=== PATIENT | male | born 1940 | race Caucasian/White ===

== ENCOUNTER 2017-10-08 08:57 | Emergency (ER) | payer MEDICARE, OTHER ==
[~2017-10-08] VITALS: Ht 170.2 cm; Wt 90.3 kg
[~2017-10-08 08:57] MED LIST: CLPD75T PO; HYDR25TA4 PO; KCL10CCR PO; LISI10TA2 PO; LISI5TAB PO; METO100T2 PO; POTA10CA43 PO
[2017-10-08] MEDS ORDERED: fentaNYL INJECTION 100 MCG/2 ML AMP INJ ONE (08:59)
[2017-10-08] MEDS ORDERED: EPINEPHrine INJECTION 1 MG/ML AMP INJ ONE (08:59)
[2017-10-08] MEDS ORDERED: DOPamine DRIP 400,000 MCG/250 ML BAG IV ONE (08:59)
[2017-10-08] MEDS ORDERED: CALCIUM CHLORIDE 1 GM/10 ML (IMS) SYR INJ ONE (08:59)
[2017-10-08] MEDS ORDERED: SUCCINYLCHOLINE INJ 100 MG/5 ML SYR INJ ONE (08:59)
[2017-10-08] MEDS ORDERED: ATROPINE INJECTION 1 MG/10 ML SYR (ABBOTT) INJ ONE (08:59)
[2017-10-08] MEDS ORDERED: SODIUM BICARB 8.4% 50 MEQ/50 ML VIAL IV ONE (08:59)
[2017-10-08] MEDS ORDERED: ETOMIDATE IV SOLN 20 MG/10 ML VIAL IV ONE (08:59)
[2017-10-08] MEDS ORDERED: MIDAZOLAM 5 MG/5 ML (VERSED) VIAL INJ ONE (08:59)
--- OUTSIDE RECORDS SUMMARY | 2017-10-08 09:03 | XMS REPORT | Continuity of Care Document ---
Author Author [facility] Organization [facility] Address Unknown Phone Unavailable Allergies There is no data. Medications There is no data. Problems There is no data. Procedures There is no data. Results There is no data. Encounters ACCT No. Visit Date/Time Discharge Status Pt. Type Provider Facility Loc./Unit Complaint [id number] 02/19/2014 07:02:00 02/19/2014 18:40:00 DIS Inpatient [id number] 07/31/2013 07:59:00 08/01/2013 10:45:00 DIS Outpatient [id number] 07/03/2013 11:31:00 07/04/2013 11:45:00 DIS Outpatient [id number] 06/12/2013 09:27:00 06/12/2013 21:00:00 DIS Outpatient
[2017-10-08] MEDS ORDERED: ASPIRIN 81 MG CHEW (CHILDREN'S ASA) ONE (09:08)
[2017-10-08] MEDS ORDERED: ASPIRIN 81 MG CHEW (CHILDREN'S ASA) PO ONE (09:15)
[2017-10-08 09:20] LABS: BASOPHILS % (AUTO) 0 % (0-10); EOSINOPHILS % (AUTO) 0 % (0-10); HEMATOCRIT 40 % (40-54); HEMOGLOBIN 13.1 G/DL (13.3-17.7); LYMPHOCYTES # (AUTO) 2.6 X 10^3 (1.0-4.0); LYMPHOCYTES % (AUTO) 13 % (12-44); MEAN CORPUSCULAR HEMOGLOBIN 29 PG (25-34); MEAN CORPUSCULAR HGB CONC 33 G/DL (32-36); MEAN CORPUSCULAR VOLUME 89 FL (80-99); MEAN PLATELET VOLUME 10.2 FL (7.4-10.4); MONOCYTES # (AUTO) 0.9 X 10^3 (0.0-1.0); MONOCYTES % (AUTO) 4 % (0-12); NEUTROPHILS # (AUTO) 16.1 X 10^3 (1.8-7.8); NEUTROPHILS % (AUTO) 82 % (42-75); PLATELET COUNT 400 10^3/uL (130-400); RED BLOOD COUNT 4.51 10^6/uL (4.35-5.85); RED CELL DISTRIBUTION WIDTH 15.5 % (10.0-14.5); WHITE BLOOD COUNT 19.6 10^3/uL (4.3-11.0)
--- NOTE | 2017-10-08 09:32 | Diagnostic Imaging Report ---
Indication: Shortness of breath and weakness PA chest obtained at 925 hours a.m. and compared with 06/12/2013. There is prominent cardiomegaly. There is mild central vascular prominence. There is no wisam edema or pneumothorax or pleural fluid. There is early alveolar infiltrate in the right lung base medially, compatible with pneumonia. IMPRESSION: Prominent cardiomegaly. Early infiltrate right medial base which may represent pneumonia. No pneumothorax or pleural fluid. Dictated by: Dictated on workstation # [id number]
[2017-10-08 09:37] LABS: INR 1.2 (0.8-1.4); PROTHROMBIN TIME PATIENT 15.7 SEC (12.2-14.7)
[2017-10-08 09:40] LABS: ALBUMIN 4.4 GM/DL (3.2-4.5); BILIRUBIN,TOTAL 0.4 MG/DL (0.1-1.0); CALCIUM 10.4 MG/DL (8.5-10.1); CREATININE SERUM 2.86 MG/DL (0.60-1.30); MAGNESIUM 2.7 MG/DL (1.8-2.4); POTASSIUM 5.5 MMOL/L (3.6-5.0)
--- NOTE | 2017-10-08 09:46 | ED Cardiac General ---
History of Present Illness General Chief Complaint: Cardiac/General Problems Stated Complaint: SOA,WEAK Nursing Triage Note: pt brought to ed via ems. pt's son states pt was c/o being lightheaded, nauseated, sob. son was trying to get pt in the car to bring to ed when pt began to have what the son described as seizure activity. ems was called at that time. Source: patient Exam Limitations: no limitations History of Present Illness Date Seen by Provider: October 08, 2017 Time Seen by Provider: 08:58 Initial Comments This 76-year-old gentleman arrives via EMS with complaints of weakness, dyspnea , generalized aching, and chest discomfort. The weakness started yesterday and the other symptoms developed this morning. He is alert and oriented. Vital signs are stable. EMS also reports that while his son was trying to get the patient to his car, he had tremoring activity. Is unclear if this was seizure- like activity. Patient denies active chest pain on arrival and he is afebrile. Allergies and Home Medications Allergies Coded Allergies: No Known Drug Allergies (Unverified , 06/12/13) Home Medications Clopidogrel Bisulfate 75 Mg Tab, 75 MG PO DAILY Prescribed by: MIRIAN CAREY on 08/01/13 1027 Hydrochlorothiazide 25 Mg Tablet, 25 MG PO DAILY, (Reported) Lisinopril 10 Mg Tablet, 10 MG PO DAILY, (Reported) Metoprolol Tartrate 100 Mg Tablet, 100 MG PO BID, (Reported) Potassium Chloride 10 Meq Tablet.sa, 10 MEQ PO DAILY, (Reported) Patient Home Medication List Home Medication List Reviewed: Yes Review of Systems Constitutional: see HPI, weakness EENTM: No Symptoms Reported Respiratory: See HPI Cardiovascular: See HPI Gastrointestinal: No Symptoms Reported Genitourinary: No Symptoms Reported Musculoskeletal: no symptoms reported Skin: no symptoms reported Psychiatric/Neurological: See HPI Endocrine: No Symptoms Reported Hematologic/Lymphatic: No Symptoms Reported Past Jolewie-Jbxxqj-Enmmth Hx Patient Social History Alcohol Use: Denies Use Recreational Drug Use: No Smoking Status: Former Smoker Type Used: Cigarettes Recent Foreign Travel: No Contact w/Someone Who Travel: No Recent Infectious Disease Expo: No Recent Hopitalizations: No Physical Abuse: No Sexual Abuse: No Seasonal Allergies Seasonal Allergies: No Past Medical History Surgeries: Yes Cardiac, Vascular Surgery (Peripheral vascular stenting) Respiratory: No Cardiac: Yes Peripheral Vascular Neurological: No Genitourinary: No Gastrointestinal: No Musculoskeletal: No Endocrine: No HEENT: Yes (bilateral cataract surgery ) Cataract Cancer: No Psychosocial: No Nursing Suicide Risk Score: 0 Integumentary: No Physical Exam Vital Signs Capillary Refill : Greater Than 3 Seconds General Appearance: No Apparent Distress, WD/WN HEENT: PERRL/EOMI, Normal ENT Inspection, Pharynx Normal Neck: Normal Inspection Respiratory: Lungs Clear, Normal Breath Sounds, No Accessory Muscle Use, No Respiratory Distress Cardiovascular: Regular Rate, Rhythm, No Edema, No Murmur, Other (peripheral pulses were weak but blood pressure was normal) Gastrointestinal: Normal Bowel Sounds, Non Tender, Soft Extremity: Non Tender, No Pedal Edema Neurologic/Psychiatric: Alert, Oriented x3, Normal Mood/Affect, 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 II-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 Norm as Tested, Motor Weakness (generalized) Skin: Warm/Dry, Other (skin was generally pale and subtly mottled with sluggish capillary refill) Focused Exam Lactate Level 10/08/17 09:06: Lactic Acid Level 12.75*H Lactic Acid Level Laboratory Tests Test 10/08/17 09:06 Lactic Acid Level 12.75 MMOL/L (0.50-2.00) *H Progress/Results/Core Measures Results/Orders Lab Results Laboratory Tests Test 10/08/17 09:06 Range/Units White Blood Count 19.6 H 4.3-11.0 10^3/uL Red Blood Count 4.51 4.35-5.85 10^6/uL Hemoglobin 13.1 L 13.3-17.7 G/DL Hematocrit 40 40-54 % Mean Corpuscular Volume 89 80-99 FL Mean Corpuscular Hemoglobin 29 25-34 PG Mean Corpuscular Hemoglobin Concent 33 32-36 G/DL Red Cell Distribution Width 15.5 H 10.0-14.5 % Platelet Count 400 130-400 10^3/uL Mean Platelet Volume 10.2 7.4-10.4 FL Neutrophils (%) (Auto) 82 H 42-75 % Lymphocytes (%) (Auto) 13 12-44 % Monocytes (%) (Auto) 4 0-12 % Eosinophils (%) (Auto) 0 0-10 % Basophils (%) (Auto) 0 0-10 % Neutrophils # (Auto) 16.1 H 1.8-7.8 X 10^3 Lymphocytes # (Auto) 2.6 1.0-4.0 X 10^3 Monocytes # (Auto) 0.9 0.0-1.0 X 10^3 Eosinophils # (Auto) 0.0 0.0-0.3 10^3/uL Basophils # (Auto) 0.0 0.0-0.1 10^3/uL Neutrophils % (Manual) 84 % Lymphocytes % (Manual) 10 % Monocytes % (Manual) 4 % Eosinophils % (Manual) 1 % Band Neutrophils 1 % Blood Morphology Comment NORMAL Prothrombin Time 15.7 H 12.2-14.7 SEC INR Comment 1.2 0.8-1.4 Activated Partial Thromboplast Time 27 24-35 SEC D-Dimer 1.21 H 0.00-0.49 UG/ML Sodium Level 133 L 135-145 MMOL/L Potassium Level 5.5 H 3.6-5.0 MMOL/L Chloride Level 97 L 98-107 MMOL/L Carbon Dioxide Level 12 L 21-32 MMOL/L Anion Gap 24 H 5-14 MMOL/L Blood Urea Nitrogen 55 H 7-18 MG/DL Creatinine 2.86 H 0.60-1.30 MG/DL Estimat Glomerular Filtration Rate 22 BUN/Creatinine Ratio 19 Glucose Level 369 H 70-105 MG/DL Lactic Acid Level 12.75 *H 0.50-2.00 MMOL/L Calcium Level 10.4 H 8.5-10.1 MG/DL Magnesium Level 2.7 H 1.8-2.4 MG/DL Total Bilirubin 0.4 0.1-1.0 MG/DL Aspartate Amino Transf (AST/SGOT) 92 H 5-34 U/L Alanine Aminotransferase (ALT/SGPT) 22 0-55 U/L Alkaline Phosphatase 72 40-136 U/L Total Creatine Kinase 1319 H 30-200 U/L Myoglobin 2625.8 H 10.0-92.0 NG/ML Troponin I 15.48 *H <0.30 NG/ML C-Reactive Protein High Sensitivity 2.11 H 0.00-0.50 MG/DL B-Type Natriuretic Peptide 2762.7 H <100.0 PG/ML Total Protein 8.0 6.4-8.2 GM/DL Albumin 4.4 3.2-4.5 GM/DL Micro Results Microbiology 10/08/17 Blood Culture - Final, Complete No growth 10/08/17 Influenza Types A,B Antigen (RACHEL) - Final, Complete My Orders Orders - BRITTNY DONATO MD Cbc With Automated Diff (10/08/17 09:09) Magnesium (10/08/17 09:09) Chest 1 View, Ap/Pa Only (10/08/17 09:09) Ekg Tracing (10/08/17 09:09) Cardiac Profile 1 (10/08/17 09:09) Comprehensive Metabolic Panel (10/08/17 09:09) Myoglobin Serum (10/08/17 09:09) Protime With Inr (10/08/17 09:09) Partial Thromboplastin Time (10/08/17 09:09) O2 (10/08/17 09:09) Monitor-Rhythm Ecg Trace Only (10/08/17 09:09) Aspirin Chewable Tablet (Baby Aspirin Ch (10/08/17 09:15) Saline Lock/Iv-Start (10/08/17 09:09) BNP (10/08/17 09:09) Fibrin Degradation Products (10/08/17 09:09) Creatine Kinase (10/08/17 09:09) Hs C Reactive Protein (10/08/17 09:09) Influenza A And B Antigens (10/08/17 09:09) Aspirin Chewable Tablet (Baby Aspirin Ch (10/08/17 09:08) Manual Differential (10/08/17 09:06) Blood Culture (10/08/17 09:27) Lactic Acid Analyzer (10/08/17 09:27) Bladder Scan (10/08/17 09:50) Ns Iv 1000 Ml (Sodium Chloride 0.9%) (10/08/17 09:53) Ondansetron Injection (Zofran Injectio (10/08/17 10:02) Lorazepam Injection (Ativan Injection) (10/08/17 10:02) Hydrocortisone Injection (Solu-Cortef In (10/08/17 10:12) Ns (Ivpb) (Sodium C... W/Epinephrine 1 (10/08/17 10:45) Atropine Inj 10 Mg Syringe (Atropine In (10/08/17 08:59) Etomidate Injection (Amidate Injection) (10/08/17 08:59) Fentanyl Injection (Sublimaze Injection (10/08/17 08:59) Midazolam Injection (Versed Injection) (10/08/17 08:59) Succinylcholine Injection (Succinylcholi (10/08/17 08:59) Calcium Chloride 10% Injection (Calcium (10/08/17 08:59) Epinephrine 1 Mg Injection (Adrenalin I (10/08/17 08:59) Sodium Bicarbonate 8.4% Vial (Sodium Bic (10/08/17 08:59) Dopamine Drip (Dopamine Drip) (10/08/17 08:59) Ns Iv 1000 Ml (Sodium Chloride 0.9%) (10/08/17 14:00) Hydrocortisone Injection (Solu-Cortef In (10/08/17 14:00) Iv Push Willow Machine Operator Ed (10/08/17 ) Medications Given in ED Vital Signs/I&O Blood Pressure Mean: 93 Progress Progress Note : Time: 10:05 Progress Note Patient had been given aspirin because of the earlier reported chest pain. IV fluids were infusing. Patient remained alert and oriented until 10:05. Septic workup was underway. Patient was found to have significantly elevated WBC and acute renal failure. Lactic acid and troponin were also elevated. Non-ST elevation NH was suspected in addition to sepsis. Patient became unresponsive at 10:05. See critical care notes for the remaining progress note. Initial ECG Impression Date: October 08, 2017 Initial ECG Impression Time: 09:02 Initial ECG Rate: 87 Comment Sinus rhythm with PVCs. ST depression noted in multiple leads. No ST elevation. No axis deviation. Diagnostic Imaging Diagonstic Imaging: Xray Plain Films/CT/US/NM/MRI: chest Comments Chest x-ray viewed by me and report reviewed. See report below: NAME: SUDHA CONNOLLY [facility] REC#: [id number] PT STATUS: REG ER : 1940 PHYSICIAN: BRITTNY DONATO MD ADMIT DATE: 10/08/17/ER Draft Date of Exam:10/08/17 CHEST 1 VIEW, AP/PA ONLY Indication: Shortness of breath and weakness PA chest obtained at 925 hours a.m. and compared with 06/12/2013. There is prominent cardiomegaly. There is mild central vascular prominence. There is no wisam edema or pneumothorax or pleural fluid. There is early alveolar infiltrate in the right lung base medially, compatible with pneumonia. IMPRESSION: Prominent cardiomegaly. Early infiltrate right medial base which may represent pneumonia. No pneumothorax or pleural fluid. Dictated on workstation # [id number] Dict: 10/08/17 0929 Trans: 10/08/17 0932 [facility] [id number] Interpreted by: TERE LEWIS MD Critical Care Note Critical Care Start Time: 10:05 Stop Time: 10:43 Progress This provider was called to patient room because he had a brief episode of tremoring followed by unresponsiveness, apnea, cyanosis, and weak pulse. He appeared to be dry heaving upon my entry into the room. Verbal order for Ativan and Zofran was given. Patient then lost pulse, became completely unresponsive, and was found to be in PEA. CPR was initiated. Intubation was felt necessary. Although patient remained pulseless with pulse checks, he continued to have movement during CPR effort. RSI was then performed with etomidate 20 mg and succinylcholine 100 mg at 10:10. Dr. Garrett was present in the room to assist with care. 1 mg of epinephrine was also administered at 10:10. Pulse check at 10:11 revealed no pulse and CPR was continued. Patient still had some movement and a second dose of succinylcholine 100 mg was given. Patient was intubated using the videoscope by Dr. Garrett with a 7.5 ET tube, 23 cm at the teeth, at 10:15. Color change capnography was noted. Patient was still in PEA and another Epinephrine 1 mg was given. 2 amps of sodium bicarbonate were given at 10:16. CPR was ongoing. Patient was noted to have a weak pulse at 10:17. Bag ventilation through ET tube was continued. 1 g calcium carbonate was given at 10:18. Hydrocortisone 100 mg was given at 10: 19. At 10:25 patient again lost pulse. CPR was resumed. Epinephrine 1 mg and atropine 0.5 mg were administered. Patient regained pulse at 10:27. Bedside ultrasound by Dr. Garrett confirmed reasonable cardiac activity. A dopamine drip was initiated at 10:29. Another 1 L normal saline bolus was initiated. Versed 2.5 mg and fentanyl 50 g were given at 10:31. Dopamine drip increased at 10:34 to 20 mcg/kg/m. Atropine 0.5 mg was given at 10:34 for bradycardia. Bradycardia was followed by PEA. CPR was resumed at 10:35. Dr. Whyte was contacted and presented to the ER for consultation. Given the elevated troponin , cardiac catheterization was considered, but patient did not sustain a pulse long enough to be transferred to the Band Saw Marker. Wolff catheter was placed during CPR. A small amount of purulent cloudy urine was returned. CPR was ongoing. Epinephrine 1 mg was administered at 10:36. Family was briefed during these efforts and brought to the bedside. Epinephrine 1 mg was administered at 1038 and again at 10:40. Pulse check at 10:43 revealed continued PEA. CPR was discontinued at family request after discussion of prognosis and the severity of his overall condition given non-ST elevation NH, sepsis, and acute renal failure. Time of was pronounced at 10:43. Patient continued to have lingering respirations but there was no cardiac activity by auscultation and no pulse. Chaplains were present and provided continued care to the family. Departure Impression Primary Impression: Sudden cardiac Additional Impressions: Non-ST elevation myocardial infarction (NSTEMI) Sepsis Qualified Codes: A41.9 - Sepsis, unspecified organism Acute renal failure Qualified Codes: N17.9 - Acute kidney failure, unspecified Hyperkalemia Lactic acidosis Disposition: 20 Condition: Departure-Patient Inst. Referrals: NO,LOCAL PHYSICIAN (PCP) Primary Care Physician BRITTNY DONATO MD October 08, 2017 09:46
[2017-10-08] MEDS ORDERED: NS IV 1000 ML 1,000 ML IV ONE (09:53)
[2017-10-08 09:57] LABS: BAND NEUTROPHILS 1 %; EOSINOPHILS % (MANUAL) 1 %; LYMPHOCYTES % (MANUAL) 10 %; MONOCYTES % (MANUAL) 4 %; NEUTROPHILS % (MANUAL) 84 %; RBC MORPH NORMAL
[2017-10-08] MEDS ORDERED: LORazepam INJ 2 MG/ML (ATIVAN) VIAL ONE (10:02)
[2017-10-08] MEDS ORDERED: ONDANSETRON 4 MG/2 ML (SDV) Z0FRAN ONE (10:02)
[2017-10-08 10:11] LABS: MYOGLOBIN SERUM 2625.8 NG/ML (10.0-92.0)
[2017-10-08] MEDS ORDERED: HYDROCORTISONE 100 MG/2 ML (Solu-CORTEF) VIAL ONE (10:12)
[2017-10-08 10:43] VITALS: BP 0/0
[2017-10-08] MEDS ORDERED: EPINEPHrine 1 MG INJECTION 2 MG in NS (IVPB) 248 ML IV SCH (10:45)
--- NOTE | 2017-10-08 11:10 | Consultation-Cardiology ---
HPI-Cardiology Cardiology Consultation: Date of Consultation 10/08/17 Date of Admission Attending Physician Admitting Physician Maribel,Local Physician Consulting Physician Preeti WHYTE MD HPI: Time Seen by Provider: 10:25 Chief Complaint: Cardiac arrest This is a 76-year-old gentleman with history of significant vascular disease with numerous peripheral vascular interventions, cardiac history follows Dr. Garcia, chronic kidney disease. He presented with complains of nausea and shortness of breath. Seizure-like activity therefore EMS was called. According to the daughter during the ambulance ride to the hospital patient's heart rate went to the 30s and then 0 and then the patient had seizure-like activity again. But was revived. He then presented to the ER and had pulseless electrical activity and CPR was done. He was started on vasopressors. I was emergently called on 10:21 a.m. I reached the ER a few minutes later. . Review of Systems-Cardiology Review of Systems Constitutional: lightheadedness Eyes: No As described under HPI, No no symptoms reported, No blindness, No blurred vision, No contact lenses, No drainage, No decreased acuity, No foreign body sensation, No glasses, No inflammation, No pain, No photophobia, No previous injury, No shadows, No tunnel vision, No other, No vision change Respiratory: shortness of breath Cardiovascular: lightheadedness Gastrointestinal: nausea/vomiting/diarrhea PYS-Ykqdeq-Dqwprg Hx Patient Social History Alcohol Use: Denies Use Recreational Drug Use: No Smoking Status: Former Smoker Type Used: Cigarettes Recent Foreign Travel: No Recent Infectious Disease Expo: No Hospitalization with Isolation: Denies Past Medical History PMH As described under Assessment. Allergies and Home Medications Allergies Coded Allergies: No Known Drug Allergies (Unverified , 06/12/13) Home Medications Clopidogrel Bisulfate 75 Mg Tab, 75 MG PO DAILY Prescribed by: MIRIAN CAREY on 08/01/13 1027 Hydrochlorothiazide 25 Mg Tablet, 25 MG PO DAILY, (Reported) Lisinopril 10 Mg Tablet, 10 MG PO DAILY, (Reported) Metoprolol Tartrate 100 Mg Tablet, 100 MG PO BID, (Reported) Potassium Chloride 10 Meq Tablet.sa, 10 MEQ PO DAILY, (Reported) Patient Home Medication List Home Medication List Reviewed: Yes Physical Exam-Cardiology Physical Exam Vital Signs/I&O 10/08/17 10/08/17 10/08/17 08:59 08:59 10:43 Temp 96.6 Pulse 92 0 Resp 19 0 B/P (MAP) 114/82 (93) 0/0 Pulse Ox 94 99 0 O2 Delivery Nasal Cannula Nasal Cannula O2 Flow Rate 2.00 2.00 Capillary Refill : Greater Than 3 Seconds Constitutional: other (code situation) Respiratory: respiratory distress Cardiovascular: bradycardia, other (off-and-on CPR) Gastrointestinal: distended Rectal: deferred Extremities: other (mottled appearance) Neurologic/Psychiatric: disoriented x 3 Skin: cool Data Review Labs Laboratory Tests 10/08/17 09:06: White Blood Count 19.6H, Red Blood Count 4.51, Hemoglobin 13.1L, Hematocrit 40, Mean Corpuscular Volume 89, Mean Corpuscular Hemoglobin 29, Mean Corpuscular Hemoglobin Concent 33, Red Cell Distribution Width 15.5H, Platelet Count 400, Mean Platelet Volume 10.2, Neutrophils (%) (Auto) 82H, Lymphocytes (%) (Auto) 13 , Monocytes (%) (Auto) 4, Eosinophils (%) (Auto) 0, Basophils (%) (Auto) 0, Neutrophils # (Auto) 16.1H, Lymphocytes # (Auto) 2.6, Monocytes # (Auto) 0.9, Eosinophils # (Auto) 0.0, Basophils # (Auto) 0.0, Neutrophils % (Manual) 84, Lymphocytes % (Manual) 10, Monocytes % (Manual) 4, Eosinophils % (Manual) 1, Band Neutrophils 1, Blood Morphology Comment NORMAL, Prothrombin Time 15.7H, INR Comment 1.2, Activated Partial Thromboplast Time 27, D-Dimer 1.21H, Sodium Level 133L, Potassium Level 5.5H, Chloride Level 97L, Carbon Dioxide Level 12L, Anion Gap 24H, Blood Urea Nitrogen 55H, Creatinine 2.86H, Estimat Glomerular Filtration Rate 22, BUN/Creatinine Ratio 19, Glucose Level 369H, Lactic Acid Level 12.75*H, Calcium Level 10.4H, Magnesium Level 2.7H, Total Bilirubin 0.4, Aspartate Amino Transf (AST/SGOT) 92H, Alanine Aminotransferase (ALT/SGPT) 22, Alkaline Phosphatase 72, Total Creatine Kinase 1319H, Myoglobin 2625.8H, Troponin I 15.48*H, C-Reactive Protein High Sensitivity 2.11H, B-Type Natriuretic Peptide 2762.7H, Total Protein 8.0, Albumin 4.4 Microbiology 10/08/17 Influenza Types A,B Antigen (RACHEL) - Final, Complete ECG Impression ECG Initial ECG Rhythm: Normal Sinus Comment ST depressions noted A/P-Cardiology Assessment/Admission Diagnosis Cardiac arrest, Septic shock, Non-STEMI, Acute kidney injury, Acute cardiogenic shock, Plan I continued to be at the bedside of the patient from 10.25 a.m. till ACLS was stopped. PEA arrest likely due to severe sepsis and non-STEMI. We were not able to revive him despite prolonged CPR and ACLS protocol. Discussed with the family. I also discussed with the ER attending Dr. Horta and Dr. Garrett who are in the room with me and a joint decision was made that further CPR/ACLS is futile. Severe sepsis and septic shock. Likely the cause of PEA arrest poor prognosis. Non-STEMI: Could be secondary to severe sepsis. Coronary angiography can only be done if we are able to get a stable rhythm and blood pressure even on vasopressors. Likely high mortality even if we proceed. Discussed at length with the family who did not want any heroic efforts. Refractory cardiogenic shock: Received numerous epinephrine injections and already on IV dopamine. Metabolic acidosis: Likely due to shock. Patient on wide-open IV fluids. Acute kidney injury with no urine output. Thank you for your consultation. Please call me if you have any questions. Nida Whyte MD, FACP, FACC, FSCAI, FHRS, CCDS Interventional Cardiology Cardiac Electrophysiology Vascular Medicine and Endovascular Interventions Preeti WHYTE MD October 08, 2017 11:10
[2017-10-08] MEDS ORDERED: NS 1000 ML IV BAG IV ONE (14:00)
[2017-10-08] MEDS ORDERED: HYDROCORTISONE 100 MG/2 ML (Solu-CORTEF) VIAL IV ONE (14:00)
== END 2017-10-08 12:37 | disposition expired ==
LOC: EDUNIT# 08:57 → ER 08:58
DX: I46.9 Cardiac arrest, cause unspecified (principal); I21.4 Non-ST elevation (NSTEMI) myocardial infarction; A41.9 Sepsis, unspecified organism; R65.20 Severe sepsis without septic shock; N17.9 Acute kidney failure, unspecified; E87.5 Hyperkalemia; Z79.02 Long term (current) use of antithrombotics/antiplatelets; Z87.891 Personal history of nicotine dependence
CPT/HCPCS: 31500; 36415; 51702; 71045; 80053; 82550; 83605; 83735; 83874; 83880; 84484; 85007; 85027; 85379; 85610; 85730; 86141; 87040; 87804; 93005; 93041; 96374; 99291